=== PATIENT | male | born 1995 | race Caucasian/White ===

== ENCOUNTER 2025-01-11 06:15 | Day surgery (SDC) | payer MEDICAID, SELFPAY ==
[2025-01-07 10:13] VITALS: BMI 32.9
[2025-01-07 12:05] LABS: Basophils # (Auto) 0.0 Thou/mm3 (0.0-0.2); Basophils % (Auto) 1 % (0-2.5); Eosinophils # (Auto) 0.1 Thou/mm3 (0.0-0.5); Eosinophils % (Auto) 1 % (0-10); Hematocrit 39.5 % (41.0-53.0); Hemoglobin 13.7 g/dL (13.5-16.0); Immature Granulocytes Auto 0.01 Thou/mm3 (0.00-0.00); Lymphocytes # (Auto) 1.7 Thou/mm3 (1.0-4.8); Lymphocytes % (Auto) 26 % (10-50); Mean Corpuscular HGB Conc 34.7 g/dl (31.0-37.0); Mean Corpuscular Hemoglobin 30.9 pg (25.0-35.0); Mean Corpuscular Volume 89 fL (80-100); Monocytes # (Auto) 0.5 Thou/mm3 (0.0-0.8); Monocytes % (Auto) 7 % (0-12); Neutrophils # (Auto) 4.4 Thou/mm3 (1.8-7.7); Neutrophils % (Auto) 65 % (37-80); Nucleated Red Blood Cell # 0.00 Thou/mm3 (0.00-0.00); Nucleated Red Blood Cell % 0 /100 WBC (0); Platelet Count 229 Thou/mm3 (140-440); RDW Standard Deviation 38.2 fL (35.1-43.9); Red Blood Count 4.44 Miln/mm3 (4.50-5.90); White Blood Count 6.7 Thou/mm3 (3.8-10.6)
[2025-01-07 12:30] LABS: Anion Gap 9 (7-16); BUN/Creatinine Ratio 10 Ratio (12-20); Blood Urea Nitrogen 10 mg/dL (9-23); Calcium 9.1 mg/dL (8.3-10.6); Carbon Dioxide 25.9 mMol/L (20.0-31.0); Chloride 107 mMol/L (98-107); Creatinine (Component) 1.0 mg/dL (0.6-1.3); Estimated Creatinine Clearance 123.9 mL/min (>60); Glucose 92 mg/dL (74-106); Osmolality,Calculated 282 (275-295); Potassium 4.4 mMol/L (3.4-5.1); Sodium 142 mMol/L (136-145); eGFR > 60 See Note
--- NOTE | 2025-01-10 13:42 | ESHP_ITS ---
RE: ANGELIC HAYDEN : 1995 DATE OF ADMISSION: 01/10/2025 HISTORY OF PRESENT ILLNESS: A 29-year-old gentleman who was referred to me. The patient is desiring bilateral vasectomy. He has 3 children. PAST SURGICAL HISTORY: None. ALLERGIES: NONE KNOWN. PAST MEDICAL HISTORY: No history of diabetes mellitus. No history of hypertension. MEDICATIONS: None. PHYSICAL EXAMINATION: HEENT: Normal. NECK: Supple. LUNGS: Clear. CARDIOVASCULAR: Heart sounds are normal. ABDOMEN: Soft without any organomegaly. No guarding. No rigidity. EXTREMITIES: Normal. GENITOURINARY: Phallus is normal. Testes are down in the scrotum. IMPRESSION: The patient desiring bilateral vasectomy for family planning. PLAN: Planned procedure risks and complications have been discussed with the patient. The patient has understood them and agreed to proceed. DT: 12:34:18 TT: 13:40:00 Ref: [id number] - TID: [id number]
--- NOTE | 2025-01-10 16:06 | SUR.PREOP ---
Pt's notified to bring pt at 0630 tomorrow.
[2025-01-11] VITALS (7 sets, daily range): BP systolic 116–136; BP diastolic 73–88; PULSE 66–80; RESP 12–16; TEMP 36.6–37.3; O2SAT 96–99; BMI 32.1
[2025-01-11] MEDS: RINGERS LACTATED 1000 ML 1,000 ML 20 ML IV (07:05)
--- NOTE | 2025-01-11 07:22 | SUR.PREOP ---
Patient expressed gratitude for prayer before their procedure.
--- NOTE | 2025-01-11 09:21 | SUR.PHASEI ---
0921: Pt. AAOx4, vitals stable, breathing unlabored, no complaint of pain or nausea, dressing to scrotal area CDI, no active bleed note, report received from Rubén VALENTE and Ney WEBB.
--- NOTE | 2025-01-11 10:14 | SUR.PHASEII ---
Pt. AAOx4, vitals stable, breathing unlabored, no complaint of pain or nausea, dressing to scrotum CDI, no active bleed noted, pt. tolerated sips of water well, pt. ambulated to wheelchair with steady gait and no assist, no complications. Gave discharge instructions to the pt. and his ride, both verbalized understanding and had no further questions. Pt. left with all personal belongings.
--- NOTE | 2025-01-11 11:23 | ESOP_ITS ---
RE: ANGELIC HAYDEN : 1995 DATE OF OPERATION: 01/11/2025 PREOPERATIVE DIAGNOSIS: The patient is desiring bilateral vasectomy for family planning. POSTOPERATIVE DIAGNOSIS: The patient is desiring bilateral vasectomy for family planning. PROCEDURE PERFORMED: Bilateral vasectomy. ANESTHESIA: General by SIDRA [place]. INDICATION: The patient is a 29-year-old gentleman desiring bilateral vasectomy for family planning. Planned procedure, risks, and complications have been discussed with the patient. The patient understood them and agreed to proceed. DESCRIPTION OF PROCEDURE: After the patient was brought to the operating table under adequate general anesthesia in supine position, parts were prepped and draped in the usual fashion. The right vas deferens was made subcutaneous. A small transverse incision was then made 0.5 cm long. Vas deferens on the right side was dissected from the surrounding structures. A small segment of vas deferens was selected. Two clamps were placed and the segment between the clamps was excised and was sent for examination. Ends of vas deferens were fulgurated and ligated using 3-0 chromic catgut sutures. Complete hemostasis was obtained. The skin wound was closed with interrupted sutures of 3-0 chromic gut. In a similar fashion, the left-sided vasectomy was also carried out. Local anesthetic was injected at the site of the skin. Sterile dressing was then applied. The patient was then transferred to the recovery room in a satisfactory condition, having tolerated the entire procedure well. Sponge count and needle count at the end of the procedure was found to be correct. Estimated blood loss was approximately 2 mL. DT: 09:26:58 TT: 11:21:00 Ref: [id number] - TID: [id number]
== END 2025-01-11 10:14 | disposition home or self-care (01) ==
PROVIDERS: PCP Family Medicine; Referring Provider Surgery; Visit Provider Surgery
PROC: (CPT 55250; principal; 2025-01-11 08:30)
DX: Z30.2 Encounter for sterilization (principal)
CPT/HCPCS: 55250; 36415; 80048; 85025; A4217; A4649; J0131; J0690; J1885; J2250; J2704; J3010; J3490; J7120; L8330; A9270; J1596